=== PATIENT | male | born 1970 | race Caucasian/White ===

== ENCOUNTER 2019-10-01 05:51 | Day surgery (SDC) | payer BC ==
[~2019-10-01] VITALS: Ht 180.3 cm; Wt 94.1 kg
[2019-10-01] MEDS ORDERED: VYVANSE50 MG PO (07:07)
[2019-10-01 07:24] VITALS: BP 142/87; Ht 180.3 cm; Wt 94.1 kg
--- NOTE | 2019-10-01 12:02 | OP ---
PATIENT NAME: JAGUAR REHMAN MEDICAL RECORD: [id number] :74 LOCATION:D.OPS ADMISSION DATE: SURGEON: DAVIDSON CANNON MD DATE OF OPERATION: 10/01/2019 PREOPERATIVE DIAGNOSIS: Hematochezia. POSTOPERATIVE DIAGNOSES: 1. Low rectal mass, fixed, 2.5 cm. 2. Secondary polyp, 9 x 4 cm. PROCEDURES: 1. Total colonoscopy to cecum. 2. Endoscopic mucosal resection, polypectomy. 3. Hot biopsy forceps polypectomy. SURGEON: Davidson Cannon MD PROCESS ARCHITECT: None. BLOOD LOSS: 25 cc. ANESTHESIA: IV sedation. COMPLICATIONS: None. The risks, possible complications, and alternatives to the procedure were explained to the patient. ENDOSCOPIC COURSE: The patient was conveyed to the endoscopy suite electively on 10/01/2019. IV sedation was induced by the anesthesia staff. The patient was placed in the Rosado position. A digital rectal examination was performed. The prostate was of normal size. Overlying the prostate, I could feel a mass. A colonoscope was inserted through the anus. It was easily advanced to the cecum. The prep was adequate. I slowly withdrew the endoscope. I intubated the ileum, which appeared normal. I continued to withdraw the endoscope. I dragged the folds. I irrigated and aspirated extensively. The pullback was greater than a 20-minute pullback. Normal imaging as well as narrow band imaging were utilized. One minute polyp was ablated with the argon plasma school transportation supervisor. A secondary polyp was removed utilizing the hot biopsy forceps polypectomy technique. I then retroflexed in the rectum. I advanced a sclerotherapy needle. Submucosal injection of epinephrine was performed. A submucosal injection Eleview was performed as well in order to prepare for endoscopic mucosal resection. I advanced a snare. I then placed a snare around the base of the polyp and performed a polypectomy. The polyp was grasped with an endoscopic retrieval net and was withdrawn through the anus. I then readvanced the scope. I examined the polyp. It was wide based. It is going to be too large to remove here in the endoscopy suite. I unretroflexed the scope and removed it under direct vision. OPERATIVE REPORT [id number] JAGUAR REHMAN On digital examination, I could feel that the polyp was larger than a quarter and was fixed. We are going to plan to perform a transanal excision of a low rectal mass in the operating room today. TRANSINT:[id number] Voice Confirmation ID: [id number] DOCUMENT ID: [id number] DAVIDSON CANNON MD at 1202 CC: KEVIN GOLDMAN [phone] DICTATION DATE: 10/01/19902 FINANCIAL SERVICES SALES REPRESENTATIVE: 10/01/19 0943 [facility] [address] [id number]
--- NOTE | 2019-10-01 12:02 | HP ---
PATIENT: JAGUAR REHMAN MEDICAL RECORD: [id number] ACCOUNT: [id number] [facility] 74 ADMISSION DATE: 10/01/19 PCP: KEVIN GOLDMAN MD HISTORY AND PHYSICAL EXAMINATION PREOPERATIVE DIAGNOSIS: Hematochezia. HISTORY OF PRESENT ILLNESS: The patient had the recent onset of hematochezia. It was with bowel movements and now sometimes it is between bowel movements. He does have an aunt who had colon cancer. No other family history of colon cancer. No melena. No abdominal pain. HOME MEDICINES: Vyvanse as well as Adipex. ALLERGIES: No known drug allergies. SOCIAL HISTORY: Nonsmoker. PAST MEDICAL AND SURGICAL HISTORY: Seizures when he was a toddler, gastroesophageal reflux. REVIEW OF SYSTEMS: Negative for coronary artery disease or hypertension. Negative for congestive heart failure, diabetes or thyroid problems. No history of Crohn's disease, no history of ulcerative colitis. PHYSICAL EXAMINATION: GENERAL: The patient does not appear acutely ill. He does not appear chronically ill. VITAL SIGNS: Reviewed. EARS: External ears appear normal. EYES: Extraocular movements are intact. NECK: Trachea is midline. CHEST: No intercostal retractions. PULMONARY: Nonlabored, no stridor. ABDOMEN: Nontender. IMPRESSION: Hematochezia. PLAN: Colonoscopy. TRANSINT:[id number] Voice Confirmation ID: [id number] DOCUMENT ID: [id number] KOKO CANNON MD at 1202 CC: KEVIN GOLDMAN [phone] DICTATION DATE: 10/01/19809 ENTERPRISE ARCHITECT: 10/01/19 [address] [place] [address]
--- NOTE | 2019-10-01 17:39 | NUR ---
1500-PT AMBULATED TO RESTROOM,UNABLE TO URINATE. DENIES PAIN.IV PATENT.CL IN EASY REACH
--- NOTE | 2019-10-01 17:39 | NUR ---
1420-REC'D FROM RR. AWAKE AND ALERT DENIES PAIN.VSS.
--- NOTE | 2019-10-01 17:40 | NUR ---
1611- PT STILL UNABLE TO URINATE. IS NOW C/O PRESSURE AND PAIN TO LOWER ABD. BLADDER SCANNED WITH RESULTS OF 291CC.DRINKING FLUIDS AND IV PATENT AT KVO
--- NOTE | 2019-10-01 17:41 | NUR ---
0955- TO ROOM TO NOTIFY PT OF ORDERS FOR AGUILERA CATH. PT HAS REQUESTED NO AGUILERA AT THIS TIME. HE WOULD LIKE TO WAIT TO SEE IF HE CAN URINATE. IV PATENT AT [facility]. LOWER ABD TENDER TO TOUCH. REPORTS PRESSURE PAIN. REVIEWED WITH PT DUE TO HIS PROCEDURE IT IS NORMAL TO FEEL MORE PRESSURE TO PERINEAL AREA. VERBALIZED UNDERSTANDING.
--- NOTE | 2019-10-01 17:41 | NUR ---
165- DAVIS RETURNED CALL. NEW ORDERS REC'D TO PLACE AGUILERA CATH AND TELL PT TO SEE HIM IN HIS OFFICE ON FRIDAY TO REMOVE AGUILERA CATH.
--- NOTE | 2019-10-01 17:44 | NUR ---
1730- REPORT TO MATTHEW SCHULZ.
--- NOTE | 2019-10-01 17:46 | NUR ---
LATE ENTRY 1542- CALLED PRESCRIPTIONS TO [facility] ON [facility] SPOKE WITH MAXIMILIANO- 1) FLAGYL 500MG 2)COLACE 100MG 3) VALIUM 5MG- HYDROCODONE 5MG PRESCRIPTION GIVEN TO SISTER IN LAW TO FILL. SIGNED COPY IN CHART.
--- NOTE | 2019-10-01 20:55 | NUR ---
PATIENT HAS CONTINUED TO HAVE DIFFICULTY VOIDING SIGNIFICANT AMOUNT BUT HAS NOW STARTED HAVING STRONG URGE TO URINATE AND HAS URINATED >200 ML URINE IN URINAL. DISCHARGE INSTRUCTIONS REVIEWED WITH PATIETN AND SPOUSE, DISCHARGED HOME VIA WHEELCHAIR TO PRIVATE VEHICLE WITH SPOUSE
--- NOTE | 2019-10-05 10:19 | OP ---
PATIENT NAME: JAGUAR REHMAN MEDICAL RECORD: [id number] :74 LOCATION:D.[facility] ADMISSION DATE: SURGEON: KOKO CANNON MD DATE OF OPERATION: 10/01/2019 PREOPERATIVE DIAGNOSIS: Low rectal mass, endoscopically unresectable. POSTOPERATIVE DIAGNOSIS: Low rectal mass, endoscopically unresectable. PROCEDURE: Transanal excision of low rectal mass. SURGEON: Koko Cannon MD DRY WALL APPLICATOR: None. BLOOD LOSS: Less than 25 cc. ANESTHESIA: General. COMPLICATIONS: None. The risks, possible complications and alternatives to the procedure were explained to the patient. He elects to proceed. The discussion specifically included, but was not limited to, bleeding requiring emergency reoperation, infection, possible need for colostomy, the possible need for chemotherapy or radiation. This is a fixed mass. OPERATIVE COURSE: The patient was conveyed to the operating room electively on 10/01/2019. General anesthesia was induced by the anesthesia staff. The patient was placed in the lithotomy position with adjustable stirrups. The lower extremities were elevated. The anus and perianal areas were sterilely prepped and draped. Utilizing the [place] retractor I everted the lower anus. Anal retractors were placed. The mass was easily identifiable at 12 o'clock and was right below the prostate. A stay suture of 0 Vicryl was placed at the apex of the mass. The mass was adherent to the underlying tissues. Utilizing the Harmonic scalpel, I incised the tissue right underneath the mass. This allowed me to place a hemostat above the mass. Over this hemostat, I used the Endo-SEGUN stapler with blue loads to excise the mass. At the other apex of the mass, a 0 Vicryl suture was placed. The mass was sent to pathology. Frozen section diagnosis is suspicious for adenocarcinoma. It appears that the mass was excised in its entirety; however, the margins certainly were very close. The staple line was oversewn with a running #1 Vicryl. I then imbricated the staple line with multiple interrupted horizontal mattress 3-0 Vicryls. One of the external hemorrhoids had to be closed with a single horizontal mattress 3-0 Vicryl. A [place] retractor was removed. Gelfoam was packed within the anus and lower rectum. An anesthetic ointment was applied to the external hemorrhoids. A combination of a steroid preparation and Marcaine were used to infiltrate the perianal tissues. OPERATIVE REPORT [id number] JAGUAR REHMAN The patient was then extubated and conveyed to the post-anesthesia care unit where he was in stable condition. He will be dismissed home on Valium as well as Morganza, Flagyl and Colace. I have instructed his family to call me if he has a fever above 102.0. TRANSINT:[id number] Voice Confirmation ID: [id number] DOCUMENT ID: [id number] KOKO CANNON MD at 1019 CC: KEVIN GOLDMAN [id number] DICTATION DATE: 10/01/19 1623 MANAGER HUMAN CAPITAL: 10/01/19 2325 [facility] 10/01/[address] [place] [address]
== END 2019-10-01 20:55 | disposition home or self-care (01) ==
LOC: D.OPS 05:51
PROVIDERS: ATTEND Surgery
DX: K62.89 Other specified diseases of anus and rectum (principal); K92.1 Melena; K63.5 Polyp of colon

== ENCOUNTER 2020-04-07 05:28 | Day surgery (SDC) | payer BC ==
[~2020-04-07] VITALS: Ht 180.3 cm; Wt 99.3 kg
[~2020-04-07 05:28] MED LIST: VALIUM5 MG PO; VYVANSE50 MG PO
[2020-04-07 06:08] LABS: CALC OSMOLALITY 278 mosm/kg (275-300); CALCIUM 8.2 mg/dL (8.5-10.1); CARBON DIOXIDE 25.5 mmol/L (21.0-32.0); CHLORIDE - SERUM 106 mmol/L (98-107); CREATININE - SERUM 1.1 mg/dL (0.6-1.3); GLUCOSE 98 mg/dL (74-106); POTASSIUM - SERUM 3.8 mmol/L (3.5-5.1); SODIUM 140 mmol/L (136-145); UREA NITROGEN 12 mg/dL (7-18); eGFR NON AFRICAN AMERICAN 76 mL/min (90-120)
[2020-04-07 06:24] LABS: BASOPHILS 0 % (0-2); EOSINOPHILS 3.3 % (0-7); HEMATOCRIT 46.7 % (42.0-54.0); HEMOGLOBIN 15.4 g/dL (13.5-17.5); IMMATURE GRANULOCYTES 0.3 % (0-5); LYMPHOCYTES 26.7 % (15-50); MCH 29.4 pg (26.0-34.0); MCV 89.1 fL (80.0-100.0); MEAN PLATELET VOLUME 8.7 fL (7.4-10.4); MONOCYTES 12.6 % (2-11); NEUTROPHILS 57.1 % (40-80); PLATELET COUNT 168 10x3/uL (130-400); RBC 5.24 10x6/uL (4.20-6.10); RDW 12.8 % (11.5-14.5); WBC 3.3 10x3/uL (4.8-10.8)
[2020-04-07 06:35] VITALS: BP 129/78; Ht 180.3 cm; Wt 99.3 kg
--- NOTE | 2020-04-07 09:14 | NUR ---
DR CANNON USING [place] [employer].
--- NOTE | 2020-04-07 10:57 | NUR ---
1036-VSS. NO N/V. BS ACTIVE X 4 QUADS,ABLE TO PASS GAS,REPORTS PRESSURE TO RECTUM 2/10. ABLE TO VOID WITHOUT COMPLICATIONS. REMOVED IV WITH CATH INTACT,DISPOSED INTO SHARPS,COVERED WITH GUAZE,SECURED WITH MEDIPORE TAPE. REVIEWED POST OPEATIVE INSTRUCTIONS. VERBALIZED UNDERSTANDING.
--- NOTE | 2020-04-07 11:00 | NUR ---
1040-PT DRESSED. ESCORTED OUT VIA W/C WITH SPOUSE AWAITING TO DRIVE HOME
--- NOTE | 2020-04-07 11:06 | HP ---
PATIENT: JAGUAR REHMAN MEDICAL RECORD: [id number] ACCOUNT: [id number] LOCATION:[facility] : 74 ADMISSION DATE: 04/07/20 PCP: KEVIN GOLDMAN MD HISTORY AND PHYSICAL EXAMINATION CHIEF COMPLAINT: History of adenocarcinoma of the anorectal junction. HISTORY OF PRESENT ILLNESS: The patient has undergone chemotherapy and radiation. This is a surveillance proctoscopy with biopsies. The invasive component of the adenocarcinoma appeared to be small at 0.4 cm. The patient has had a recent PET scan, which revealed a hot spot in the right upper lobe and that is going to be worked up separately. SOCIAL HISTORY: Nonsmoker. ALLERGIES: No known drug allergies. HOME MEDICINES: Valium, Vyvanse. PAST MEDICAL AND SURGICAL HISTORY: Febrile seizures as a child. REVIEW OF SYSTEMS: Negative for coronary artery disease or hypertension. Negative for congestive heart failure. Negative for diabetes or thyroid problems. PHYSICAL EXAMINATION: GENERAL: The patient does not appear acutely ill. He does not appear chronically ill. VITAL SIGNS: Reviewed. EARS: External ears appear normal. EYES: Extraocular movements are intact. NECK: Trachea is midline. CHEST: No intercostal retractions. PULMONARY: Nonlabored, no stridor. IMPRESSION: History of adenocarcinoma of the anorectal junction, status post chemotherapy and radiation. PLAN: Flexible proctoscopy with biopsies. TRANSINT:[id number] Voice Confirmation ID: [id number] DOCUMENT ID: [id number] KOKO CANNON MD at 1106 CC: TAMIR DELEON MD, KEVIN MARTINEZ and KEVIN GOLDMAN [phone] DICTATION DATE: 04/07/20812 MEDICAL GENETICIST: 04/07/20 0907 [facility] 04/07/[id number] [place] [address]
--- NOTE | 2020-04-08 23:37 | OP ---
PATIENT NAME: JAGUAR REHMAN MEDICAL RECORD: [id number] :74 LOCATION:D.[facility] ADMISSION DATE: SURGEON: KOKO CANNON MD DATE OF OPERATION: 04/07/2020 PREOPERATIVE DIAGNOSIS: History of adenocarcinoma of the anorectal junction, likely a rectal adenocarcinoma. POSTOPERATIVE DIAGNOSES: 1. 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 2. Bilobed nodularity at the cephalad portion of my staple line, recurrent malignancy versus glandular tissue and/or scar. I would favor that this does not represent a recurrent malignancy. 3. Scarring elsewhere within the rectum, likely benign. 4. Diffuse mild proctitis with contact hemorrhage. PROCEDURES: 1. Flexible proctoscopy with endoscopic mucosal resection of an area of bilobed semi-pedunculated lesions. 2. Cold endoscopic biopsies of areas along a scar line. SURGEON: Koko Cannon MD HARVESTING MANAGER: None. BLOOD LOSS: Minimal. ANESTHESIA: IV sedation. COMPLICATIONS: None. The risks, possible complications, alternatives to the procedure were explained to the patient and his . ENDOSCOPIC COURSE: The patient was conveyed to the endoscopy suite electively on 04/07/2020. IV sedation was induced by the anesthesia staff. The patient was placed in the Rosado position. A digital rectal examination was performed. A colonoscope was inserted through the anus. It was easily advanced to the sigmoid colon. I then slowly withdrew the endoscope. The prep was excellent. There was proctitis noted in the rectum with contact bleeding, but no spontaneous hemorrhage. I noted no evidence of vascular ectasias. I advanced a sclerotherapy needle. Submucosal injection of epinephrine was performed for postoperative hemorrhage control. I then injected submucosally with Eleview. I advanced an endoscopic snare. I then snared off the top of this bilobed lesion with the endoscopic snare utilizing the coagulation setting and then a cut setting. Prior to doing this, I examined the bilobed lesion utilizing normal imaging as well as narrow band imaging. The outer layer of the lesion appeared to be normal rectal mucosa rather than glandular tissue or tissue that was suspicious for malignancy. After snaring off the top of this lesion, I then performed multiple deeper biopsies utilizing the cold endoscopic biopsy forceps. I then utilized the argon plasma boom master to cauterize the very base of this area. There were 2 OPERATIVE REPORT [id number] JAGUAR REHMAN rayo that were present from my prior resection and these were removed with the cold biopsy forceps. For postoperative hemorrhage control as well as for tissue reinforcement, I laid down a row of 3 endoscopic clips. There was an area of scarring that I wanted to biopsy as well and I biopsied this with the cold endoscopic biopsy forceps. The biopsy sites were made hemostatic with the argon plasma boom master utilizing the right colon setting in the forced mode. During this procedure, normal imaging as well as narrow band imaging were utilized. Additionally, a straight on view as well as retroflex views were obtained. I saw no definite evidence of a recurrent malignancy. The colonoscope was removed. There is no need for the patient to follow up with me in the office. I will be seeing his here at the hospital and I can relay the pathologic findings to her. He is being dismissed home on Flagyl, Colace and Valium as well as tramadol. TRANSINT:[id number] Voice Confirmation ID: [id number] DOCUMENT ID: [id number] KOKO CANNON MD at 2337 CC: TAMIR DELEON MD, KEVIN MARTINEZ and KEVIN GOLDMAN [phone] DICTATION DATE: 04/07/20 1133 MIGRATORY GAME BIRD BIOLOGIST: 04/07/20 1516 [facility] 04/07/20 [facility] [address] [place] [address]
== END 2020-04-07 10:40 | disposition home or self-care (01) ==
LOC: D.OPS 05:28 → D.PAN 08:00 → D.OPS 09:15
PROVIDERS: ATTEND Surgery
DX: K62.89 Other specified diseases of anus and rectum (principal); Z85.048 Personal history of other malignant neoplasm of rectum, rectosigmoid junction, and anus

== ENCOUNTER → 2020-04-11 12:24 | Outpatient (CLI) | payer BC ==
[2020-04-07 06:35] VITALS: BMI 30.6
== END | disposition home or self-care (01) ==
LOC: D.LABREF 12:24
PROVIDERS: ATTEND Internal Medicine Cardiovascular Disease
DX: Z11.59 Encounter for screening for other viral diseases (principal)

== ENCOUNTER → 2020-04-13 09:18 | Outpatient (CLI) | payer BC ==
[2020-04-07 06:35] VITALS: BMI 30.6
== END | disposition home or self-care (01) ==
LOC: D.RT 09:18
PROVIDERS: ATTEND Internal Medicine Cardiovascular Disease
DX: R91.1 Solitary pulmonary nodule (principal)

== ENCOUNTER → 2020-07-13 08:14 | Outpatient (CLI) | payer BC ==
[2020-04-07 06:35] VITALS: BMI 30.6
== END | disposition home or self-care (01) ==
LOC: D.CT 08:14
PROVIDERS: ATTEND Internal Medicine Medical Oncology
DX: C21.8 Malignant neoplasm of overlapping sites of rectum, anus and anal canal (principal)

== ENCOUNTER 2020-08-18 05:46 | Day surgery (SDC) | payer BC ==
[~2020-08-18] VITALS: Ht 177.8 cm; Wt 103.9 kg
[2020-08-18 06:05] LABS: BASOPHILS 0 % (0-2); EOSINOPHILS 2.5 % (0-7); HEMATOCRIT 48.4 % (42.0-54.0); HEMOGLOBIN 16.4 g/dL (13.5-17.5); IMMATURE GRANULOCYTES 0.2 % (0-5); LYMPHOCYTES 20.1 % (15-50); MCH 29.7 pg (26.0-34.0); MCHC 33.9 g/dL (31.0-37.0); MCV 87.5 fL (80.0-100.0); MEAN PLATELET VOLUME 8.3 fL (7.4-10.4); MONOCYTES 10.4 % (2-11); NEUTROPHILS 66.8 % (40-80); PLATELET COUNT 154 10x3/uL (130-400); RBC 5.53 10x6/uL (4.20-6.10); RDW 13.2 % (11.5-14.5); WBC 4.7 10x3/uL (4.8-10.8)
[2020-08-18 06:37] LABS: ANION GAP 9.2 mmol/L (8-16); CALCIUM 8.8 mg/dL (8.5-10.1); CARBON DIOXIDE 28.6 mmol/L (21.0-32.0); CREATININE - SERUM 1.2 mg/dL (0.6-1.3); POTASSIUM - SERUM 3.8 mmol/L (3.5-5.1)
[2020-08-18 06:57] VITALS: BP 136/81; Ht 177.8 cm; Wt 103.9 kg
[2020-08-18 06:58] LABS: APTT 28.9 SECONDS (22.8-39.4); PROTIME 13.1 SECONDS (11.6-15.0)
--- NOTE | 2020-08-18 13:03 | NUR ---
DC INSTRUCTIONS GIVEN TO PT/SPOUSE. STATE UNDERSTANDING. DC'D IV CATH FULLY INTACT. WILL DC SHORTLY.
--- NOTE | 2020-08-18 13:06 | NUR ---
PT LEFT UNIT VIA WC AT 1310
--- NOTE | 2020-08-19 10:29 | OP ---
PATIENT NAME: JAGUAR REHMAN MEDICAL RECORD: [id number] :74 [facility] DATE: SURGEON: KOKO CANNON MD DATE OF OPERATION: 08/18/2020 PREOPERATIVE DIAGNOSIS: History of low rectal cancer. POSTOPERATIVE DIAGNOSIS: History of low rectal cancer. PROCEDURES: 1. Flexible proctoscopy. 2. Transanal reexcision of prior rectal excision site. SURGEON: Koko Cannon MD BRAKE REPAIR MECHANIC: None. BLOOD LOSS: Less than 25 cc. ANESTHESIA: General. COMPLICATIONS: None. The risks, possible complications and alternatives to the procedure were explained to the patient. He elects to proceed. The discussion specifically included, but was not limited to, bleeding requiring emergency reoperation, infection, full thickness bowel injury, and possible need for a colostomy. OPERATIVE COURSE: The patient was conveyed to the operating room electively on 08/18/2020. General anesthesia was induced by the anesthesia staff. The patient was placed in lithotomy position. A flexible colonoscope was inserted through the anus. It was advanced to the colorectal junction. I withdrew it into the rectum. A retroflexion was obtained. I examined the scarred area. I noted no evidence of regrowth of the malignancy. There was just a stellate scar present as well as one metallic clip. I then used the hot biopsy forceps to cauterize just proximal and just distal to the scarred area. I then unretroflexed the scope and removed it under direct vision. The anus and perineum were then sterilely prepped and draped. U-shaped anal retractors were placed. I was able to visualize the scarred area as well as the staple at the 1 o'clock position. A submucosal injection of dilute epinephrine solution was performed with a spinal needle. This was for a post-procedural hemostasis. I then went about excising the scar. This was done with the electrocautery. There was no damage to the underlying anal sphincters. In the most indurated area of the scar, I took some ENT biopsy forceps and excised this very indurated tissue which may represent scar tissue and/or malignancy. I then closed the defect with a running #1 Vicryl out on to the anoderm. Gelfoam was applied within the anus and lower rectum. I then injected Marcaine into the perianal tissues. Americaine was applied to the external hemorrhoids. The patient was then extubated and conveyed to post-anesthesia care unit where he was in stable condition. He will be dismissed home on Flagyl, Colace, Valium as well as hydrocodone. I will see him in the office in 2-3 weeks. OPERATIVE REPORT [id number] SHERIEJAGUAR Nati TRANSINT:[id number] Voice Confirmation ID: [id number] DOCUMENT ID: [id number] KOKO CANNON MD at 1029 CC: TAMIR DELEON MD and KEVIN MARTINEZ [phone] DICTATION DATE: 08/18/20 1429 SUPERVISOR LIVESTOCK YARD: 08/19/20 0219 [facility] 08/18/20 [facility] [address] [place] [address]
== END 2020-08-18 13:10 | disposition home or self-care (01) ==
LOC: D.OPS 05:46
PROVIDERS: Anesthesiology; ATTEND Surgery
DX: Z85.048 Personal history of other malignant neoplasm of rectum, rectosigmoid junction, and anus (principal)

== ENCOUNTER 2021-01-26 05:37 | Day surgery (SDC) | payer BC ==
[~2021-01-26] VITALS: Ht 177.8 cm; Wt 106.8 kg
[2021-01-26 06:02] LABS: BASOPHILS 0.2 % (0-2); EOSINOPHILS 2.9 % (0-7); HEMATOCRIT 47.2 % (42.0-54.0); HEMOGLOBIN 16.3 g/dL (13.5-17.5); IMMATURE GRANULOCYTES 0.2 % (0-5); LYMPHOCYTE ABS# 1.05 10x3/uL (1.32-3.57); LYMPHOCYTES 23.6 % (15-50); MCH 29.9 pg (26.0-34.0); MCHC 34.5 g/dL (31.0-37.0); MCV 86.4 fL (80.0-100.0); MEAN PLATELET VOLUME 8.7 fL (7.4-10.4); MONOCYTES 9.9 % (2-11); NEUTROPHILS 63.2 % (40-80); RBC 5.46 10x6/uL (4.20-6.10); RDW 12.9 % (11.5-14.5); WBC 4.4 10x3/uL (4.8-10.8)
[2021-01-26 06:26] VITALS: Ht 177.8 cm; Wt 106.8 kg
[2021-01-26 06:34] LABS: PLATELET COUNT 188 10x3/uL (130-400)
--- NOTE | 2021-01-26 12:13 | HP ---
PATIENT: JAGUAR REHMAN MEDICAL RECORD: [id number] ACCOUNT: [id number] [facility] 74 ADMISSION DATE: 01/26/21 PCP: KEVIN GOLDMAN MD HISTORY AND PHYSICAL EXAMINATION CHIEF COMPLIANT: History of adenocarcinoma at the anorectal junction. The patient is here for surveillance proctoscopy with biopsies. He has had no anal pain. No fecal incontinence. HOME MEDICATIONS: DIAZEPAM. ALLERGIES: No known drug allergies. SOCIAL HISTORY: Nonsmoker. PAST MEDICAL AND SURGICAL HISTORY: Anxiety, childhood seizures, history of transrectal resection of the adenocarcinoma. PHYSICAL EXAMINATION: GENERAL: The patient does not appear acutely ill. He does not appear chronically ill. VITAL SIGNS: Reviewed. EARS: External ears appear normal. EYES: Extraocular movements are intact. NECK: Trachea is midline. CHEST: No intercostal retractions. PULMONARY: Nonlabored. No stridor. IMPRESSION: History of invasive adenocarcinoma of the anorectal junction. PLAN: Proctoscopy with biopsies. TRANSINT:[id number] Voice Confirmation ID: [id number] DOCUMENT ID: [id number] KOKO CANNON MD at 1213 CC: TAMIR DELEON MD and KEVIN GOLDMAN [phone] DICTATION DATE: 01/26/21 0740 OUTREACH DIRECTOR: 01/26/[address] [facility] [address] [id number]
--- NOTE | 2021-01-26 12:13 | OP ---
PATIENT NAME: JAGUAR REHMAN MEDICAL RECORD: [id number] :74 LOCATION:D.[facility] ADMISSION DATE: SURGEON: KOKO CANNON MD DATE OF OPERATION: 01/26/2021 PREOPERATIVE DIAGNOSIS: History of invasive adenocarcinoma of the anorectal junction. POSTOPERATIVE DIAGNOSES: History of invasive adenocarcinoma of the anorectal junction with no evidence of regrowth of malignant tissue. PROCEDURE: Flexible proctoscopy with biopsy. SURGEON: Koko Cannon MD TILE LAYER SUPERVISOR: None. BLOOD LOSS: Minimal. ANESTHESIA: IV sedation. COMPLICATIONS: None. DESCRIPTION OF PROCEDURE: The risks and possible complications were discussed with the patient and his . He was conveyed to the endoscopy suite electively on 01/26/2021. IV sedation was induced by the anesthesia staff. The patient was placed in the Rosado position. Digital rectal examination was performed. A colonoscope was inserted through the anus. It was advanced up to the rectum. I tried to retroflex, but the diameter of the rectum was such that I could not put the colonoscope in retroflexion. However, I was able to visualize the scar, which was at 6 o'clock. Multiple cold biopsies were obtained. I did not see any glandular tissue that worried me. A combination of normal imaging and narrow band imaging were utilized. Once I was satisfied with a number of biopsies, the scope was withdrawn under direct vision. There was no need for the patient to follow up with me in the office as I will be talking to his about the pathology results once they return. TRANSINT:[id number] Voice Confirmation ID: [id number] DOCUMENT ID: [id number] KOKO CANNON MD at 1213 CC: TAMIR DELEON MD and KEVIN GOLDMAN [phone] DICTATION DATE: 01/26/21 0810 GAMBRELER: 01/26/[address] [facility] [address] [place] [address]
== END 2021-01-26 08:50 | disposition home or self-care (01) ==
LOC: D.OPS 05:37
PROVIDERS: Anesthesiology; ATTEND Surgery
DX: Z85.048 Personal history of other malignant neoplasm of rectum, rectosigmoid junction, and anus (principal)

== ENCOUNTER → 2021-02-21 08:00 | Outpatient (CLI) | payer BC ==
[2021-01-26 06:26] VITALS: BMI 33.7
== END | disposition home or self-care (01) ==
LOC: D.CT 08:00
PROVIDERS: ATTEND Internal Medicine Medical Oncology
DX: C21.8 Malignant neoplasm of overlapping sites of rectum, anus and anal canal (principal)